=== PATIENT | male | born 1990 | race African-American/Black ===

== ENCOUNTER 2018-06-15 21:33 | Emergency (ER) | payer OTHER ==
[2018-06-15] MEDS: NS 1,000 ML IV (22:45)
[2018-06-15] MEDS: KETOROLAC 30 MG/ML VIAL (J1885) IV (22:46)
== END 2018-06-16 00:31 | disposition home or self-care (01) ==
LOC: M ED 06-16 00:31
DX: R51 Headache (principal); Z79.899 Other long term (current) drug therapy
CPT/HCPCS: J1885

== ENCOUNTER 2018-08-11 22:48 | Emergency (ER) | payer OTHER | END 2018-08-11 23:40 | disposition home or self-care (01) | LOC: M ED 22:48 | DX: R13.10 Dysphagia, unspecified (principal); J02.9 Acute pharyngitis, unspecified; Z79.899 Other long term (current) drug therapy | CPT/HCPCS: 99282 ==

== ENCOUNTER 2018-08-13 23:15 | Emergency (ER) | payer OTHER ==
[2018-08-14 01:05] LABS: BASO % 0.4 % (0.0-1.0); EOS % 0.4 % (0.0-3.0); HEMATOCRIT 44.3 % (42.0-52.0); IMMATURE GRANULOCYTE % 0.2 % (0-3.0); LYMPH # 1.4 10^3/uL (1.5-6.5); MEAN CORPUSCULAR HEMOGLOBIN 31.4 pg (27.0-33.0); MEAN CORPUSCULAR HGB CONC 33.9 g/dl (32.0-36.5); MEAN CORPUSCULAR VOLUME 92.9 fl (80.0-96.0); MONO # 0.4 10^3/uL (0.0-0.8); MONO % 7.9 % (0.0-5.0); NEUTROPHILS # 3.6 10^3/uL (1.8-7.7); NEUTROPHILS % 65.1 % (36.0-66.0); PLATELET COUNT, AUTOMATED 235 10^3/uL (150-450); RED BLOOD COUNT 4.77 10^6/uL (4.30-6.10); RED CELL DISTRIBUTION WIDTH 12.9 % (11.5-14.5); WHITE BLOOD COUNT 5.5 10^3/uL (4.0-10.0)
[2018-08-14 01:31] LABS: ANION GAP 8 MEQ/L (8-16); BLOOD UREA NITROGEN 15 MG/DL (7-18); CALCIUM LEVEL 9.6 MG/DL (8.5-10.1); CARBON DIOXIDE LEVEL 24 MEQ/L (21-32); CHLORIDE LEVEL 107 MEQ/L (98-107); CPK CREATINE PHOSPHOKINASE 413 U/L (39-308); CREATININE FOR GFR 1.01 MG/DL (0.70-1.30); GLOMERULAR FILTRATION RATE > 60.0 (>60); GLUCOSE, FASTING 87 MG/DL (70-100); MB/CK RELATIVE INDEX 1.82 (< OR =4); POTASSIUM SERUM 4.1 MEQ/L (3.5-5.1); SODIUM LEVEL 139 MEQ/L (136-145); TROPONIN I < 0.02 NG/ML (< 0.10)
== END 2018-08-14 01:36 | disposition home or self-care (01) ==
LOC: M ED 23:15
DX: R19.8 Other specified symptoms and signs involving the digestive system and abdomen (principal); R09.81 Nasal congestion; Z79.899 Other long term (current) drug therapy
CPT/HCPCS: 82550

== ENCOUNTER 2018-09-06 15:34 | Emergency (ER) | payer OTHER | END 2018-09-06 16:26 | disposition home or self-care (01) | LOC: M ED 15:34 | DX: Z76.0 Encounter for issue of repeat prescription (principal); F39 Unspecified mood [affective] disorder; Z79.899 Other long term (current) drug therapy | CPT/HCPCS: 99282 ==

== ENCOUNTER 2019-02-28 20:07 | Emergency (ER) | payer OTHER ==
[~2019-02-28] VITALS: Ht 175.3 cm; Wt 77.3 kg
[~2019-02-28 20:07] MED LIST: OMEP10CASR PO; PSEU60TA23 PO; ZYPR5TAB2 PO; ZYRT10CA5 PO
[2019-02-28] MEDS ORDERED: FLUO20CA19 PO (21:31)
[2019-02-28] MEDS ORDERED: LIDOCAINE VISCOUS 2% SOLN 15ML UDC SS ONE (22:15)
[2019-02-28 22:20] VITALS: BP 136/68
== END 2019-02-28 22:22 | disposition home or self-care (01) ==
LOC: M ED 20:07
DX: T18.108A Unspecified foreign body in esophagus causing other injury, initial encounter (principal); X58.XXXA Exposure to other specified factors, initial encounter; Y92.89 Other specified places as the place of occurrence of the external cause; J02.9 Acute pharyngitis, unspecified; K21.9 Gastro-esophageal reflux disease without esophagitis; Z79.899 Other long term (current) drug therapy

== ENCOUNTER 2019-04-02 17:31 | Emergency (ER) | payer OTHER ==
[~2019-04-02] VITALS: Ht 175.3 cm; Wt 80.0 kg
[~2019-04-02 17:31] MED LIST changes: +FLUO20CA19 PO
[2019-04-02] MEDS ORDERED: OMEP-221 PO (19:10)
[2019-04-02] MEDS ORDERED: MAGIC MOUTHWASH SUSPENSION BTL SSP STA (19:28)
[2019-04-02] MEDS ORDERED: LIDO1SOL8 PO (20:17)
[2019-04-02 20:22] VITALS: BP 133/82
--- NOTE | 2019-04-02 20:34 | REP ---
CHEST, TWO VIEWS: There is no evidence of acute infiltrate. No pleural effusion is seen. The heart is normal in size. The mediastinal silhouette is unremarkable. The visualized osseous structures are intact. IMPRESSION: No acute pulmonary disease. Electronically Signed by John Osorio MD 04/04/2019 12:53 P
== END 2019-04-02 20:37 | disposition home or self-care (01) ==
LOC: M ED 17:31
DX: S29.012A Strain of muscle and tendon of back wall of thorax, initial encounter (principal); X58.XXXA Exposure to other specified factors, initial encounter; Y92.138 Other place on military base as the place of occurrence of the external cause; B34.9 Viral infection, unspecified; M54.9 Dorsalgia, unspecified; K21.9 Gastro-esophageal reflux disease without esophagitis

== ENCOUNTER → 2019-04-21 | Outpatient (CLI) | payer OTHER ==
[~2019-04-21] MED LIST changes: +E-Z-GAS II EFFERVESCENT PACKET (SODIUM BICARB./CITRIC ACID/SIMETHICONE) As Ordered ONE; +E-Z-HD 98% w/w 340GM SUSP BTL As Ordered ONE; +E-Z-PAQUE 96% w/w SUSP 176GM BTL As Ordered ONE; +LIDO1SOL8 PO; +OMEP-221 PO
--- NOTE | 2019-04-22 13:21 | REP ---
Esophagram The procedure was performed under the direct supervision of Dr. Crump. The images were reviewed with Dr. Crump. A single view PA chest x-ray is submitted as a oyster cultivator film. The superior mediastinal structures are midline. The heart size is within normal limits. The lungs are clear. Liquid barium and gas producing granules were given in the erect position as well as liquid barium in the prone oblique positions in order to perform a double contrast esophagram examination. The oral and pharyngeal stages of deglutition are unremarkable. Esophageal transport is prompt and efficient and there is no esophagitis, stricture, mucosal ring or hiatal hernia. Gastroesophageal reflux is not demonstrated on this examination. Impression: Essentially unremarkable double contrast esophagram examination. 0.6 minutes of fluoro time was utilized for this procedure. Reviewed by KATIE Velasquez 04/21/2019 05:35 P Electronically Signed by John Crump MD 04/22/2019 01:12 P
== END ==
LOC: M RAD 09:29
PROVIDERS: ATTEND Physician Assistant
DX: R13.10 Dysphagia, unspecified (principal)

== ENCOUNTER 2019-05-16 10:06 | Emergency (ER) | payer OTHER ==
[~2019-05-16] VITALS: Ht 175.3 cm; Wt 76.0 kg
[~2019-05-16 10:06] MED LIST changes: -E-Z-GAS II EFFERVESCENT PACKET (SODIUM BICARB./CITRIC ACID/SIMETHICONE) As Ordered ONE; -E-Z-HD 98% w/w 340GM SUSP BTL As Ordered ONE; -E-Z-PAQUE 96% w/w SUSP 176GM BTL As Ordered ONE
[2019-05-16] MEDS ORDERED: NS 1,000 ML IV ONE (10:45)
[2019-05-16] MEDS ORDERED: KETOROLAC 30 MG/ML VIAL (J1885) IV ONE (10:45)
[2019-05-16 11:01] LABS: BASO % 0.5 % (0.0-1.0); EOS # 0.1 10^3/uL (0.0-0.50); EOS % 1.3 % (0.0-3.0); HEMATOCRIT 42.9 % (42.0-52.0); HEMOGLOBIN 14.7 g/dl (13.5-17.5); LYMPH # 1.1 10^3/uL (1.5-6.5); LYMPH % 28.5 % (24.0-44.0); MEAN CORPUSCULAR HEMOGLOBIN 31.7 pg (27.0-33.0); MEAN CORPUSCULAR HGB CONC 34.3 g/dl (32.0-36.5); MEAN CORPUSCULAR VOLUME 92.5 fl (80.0-96.0); MONO # 0.4 10^3/uL (0.0-0.8); MONO % 8.8 % (0.0-5.0); NEUTROPHILS # 2.4 10^3/uL (1.8-7.7); NEUTROPHILS % 60.9 % (36.0-66.0); PLATELET COUNT, AUTOMATED 221 10^3/uL (150-450); RED BLOOD COUNT 4.64 10^6/uL (4.30-6.10)
[2019-05-16 11:19] LABS: BLOOD UREA NITROGEN 9 MG/DL (7-18); C REACTIVE PROTEIN QUANTITATIV < 0.30 MG/DL (0.00-0.30); CALCIUM LEVEL 9.3 MG/DL (8.5-10.1); CARBON DIOXIDE LEVEL 26 MEQ/L (21-32); CHLORIDE LEVEL 106 MEQ/L (98-107); CREATININE FOR GFR 1.03 MG/DL (0.70-1.30); GLOMERULAR FILTRATION RATE > 60.0 (>60); GLUCOSE, FASTING 89 MG/DL (70-100); POTASSIUM SERUM 4.3 MEQ/L (3.5-5.1); SODIUM LEVEL 140 MEQ/L (136-145)
[2019-05-16 11:36] LABS: ERYTHROCYTE SEDIMENTATION RATE 4 mm/hr (0-15)
--- NOTE | 2019-05-16 11:42 | REP ---
Mode ultrasound for right testicular pain. The testes are normal size. The right testis measures 4.1 x 2.2 x 2.7 cm. Left testis measures 4.2 x 2.2 x 2.3 cm. There are no testicular masses. There is vascular flow in both testes. The Doppler resistive index of the parenchymal arteries in the right testis is 0.59 and left testis 0.49. The right epididymal head is normal size measuring 8.5 mm and is otherwise unremarkable. The left epididymal head is normal size measuring 8.0 mm AP is multiple tiny cysts. The largest cyst measures 4 mm. Impression: There is vascular flow in both testes. There are no testicular masses. There are multiple tiny left epididymal head cysts are incidentally identified. Otherwise, negative scrotal ultrasound. Electronically Signed by John Crump MD 05/16/2019 11:33 A
--- NOTE | 2019-05-16 12:01 | REP ---
CT BRAIN WITHOUT IV CONTRAST: CT brain performed without IV contrast. Ventricles are normal in size and position with no midline shift or mass effect. Osorio-white differentiation is well maintained. There is no acute intracranial hemorrhage or extra-axial fluid collection. Bone window examination is unremarkable. IMPRESSION: Negative noncontrast CT brain. Electronically Signed by John Osorio MD 05/18/2019 10:49 P
--- NOTE | 2019-05-16 12:36 | REP ---
CT MAXILLOFACIAL BONES: CT maxillofacial bones performed in the axial plane with sagittal and coronal reconstruction images. Paranasal sinuses are clear with no air fluid levels. Mastoid air cells are well aerated with no abnormal opacification. Visualized osseous structures are intact. No gross soft tissue mass is seen. Globes appear intact. IMPRESSION: No evidence of sinusitis or mastoiditis. Electronically Signed by John Osorio MD 05/18/2019 10:50 P
[2019-05-16 12:44] LABS: CHLAMYDIA DNA AMPLIFICATION NEGATIVE (NEGATIVE); GC DNA AMPLIFICATION NEGATIVE (NEGATIVE)
[2019-05-16 13:18] VITALS: BP 129/72
== END 2019-05-16 13:19 | disposition home or self-care (01) ==
LOC: M ED 10:06
DX: R51 Headache (principal); N50.811 Right testicular pain; R10.30 Lower abdominal pain, unspecified; N50.3 Cyst of epididymis; Z79.899 Other long term (current) drug therapy
CPT/HCPCS: 70450; 70486; 76870; 80048; 81001; 85025; 85652; 86140; 87661; 93976; 96374; 99284; J1885

== ENCOUNTER 2019-06-22 19:58 | Emergency (ER) | payer OTHER ==
[~2019-06-22] VITALS: Ht 175.3 cm; Wt 77.3 kg
[2019-06-22 19:58] VITALS: BP 136/68
== END 2019-06-22 20:33 | disposition home or self-care (01) ==
LOC: M ED 19:58
DX: R13.10 Dysphagia, unspecified (principal)

== ENCOUNTER 2019-07-04 18:08 | Emergency (ER) | payer OTHER ==
[~2019-07-04] VITALS: Ht 175.3 cm; Wt 79.5 kg
--- NOTE | 2019-07-04 19:07 | ECGEPIP ---
[facility] - ED Test Date: 2019-07-04 Pat Name: SRIRAM YATES Department: Room: - Gender: Male Financial Recording Clerk: FARZANEH : 1990 Requested By: MARIANO Landry Order Number: [id number] Reading MD: Celestino Schroeder Measurements Intervals [place] Rate: 89 P: 65 CO: 141 QRS: 83 QRSD: 90 T: 62 QT: 332 QTc: 405 Interpretive Statements SINUS RHYTHM BENIGN EARLY REPOLARIZATION NO PRIORS FOR COMPARISON Electronically Signed on 07-04-2019 19:07:15 EDT by Celestino Schroeder
--- NOTE | 2019-07-04 20:05 | REP ---
HISTORY: Pain. COMPARISON: 04/02/2019 FINDINGS: The superior mediastinal structures are midline. The cardiac silhouette is unremarkable in size, shape and position. The diaphragmatic surfaces of the lungs are regular and the costophrenic angles are clear. The pulmonary randolph are clear. The imaged osseous structures are intact. IMPRESSION: There is no acute cardiopulmonary disease. No change. Electronically Signed by Dc Calderon DO 07/05/2019 09:07 A
[2019-07-04] MEDS ORDERED: ZYPR10TA PO (20:09)
[2019-07-04] MEDS ORDERED: IBUP80TA PO (20:09)
[2019-07-04 20:21] LABS: BASO % 0.4 % (0.0-1.0); EOS # 0.1 10^3/uL (0.0-0.5); EOS % 1.2 % (0.0-3.0); HEMATOCRIT 44.7 % (42.0-52.0); HEMOGLOBIN 14.9 g/dl (13.5-17.5); LYMPH # 1.3 10^3/uL (1.5-5.0); LYMPH % 16.6 % (24.0-44.0); MEAN CORPUSCULAR HEMOGLOBIN 30.8 pg (27.0-33.0); MEAN CORPUSCULAR HGB CONC 33.3 g/dl (32.0-36.5); MEAN CORPUSCULAR VOLUME 92.4 fl (80.0-96.0); MONO # 0.6 10^3/uL (0.0-0.8); MONO % 7.5 % (0.0-5.0); NEUTROPHILS # 5.6 10^3/uL (1.5-8.5); NEUTROPHILS % 73.9 % (36.0-66.0); PLATELET COUNT, AUTOMATED 271 10^3/uL (150-450); RED BLOOD COUNT 4.84 10^6/uL (4.30-6.10); WHITE BLOOD COUNT 7.6 10^3/uL (4.0-10.0)
[2019-07-04 20:31] LABS: INR 0.95; PROTHROMBIN TIME 12.4 SECONDS (11.8-14.0)
[2019-07-04 20:32] LABS: PARTIAL THROMBOPLASTIN TIME 34.5 SECONDS (25.0-38.4)
[2019-07-04 20:41] LABS: ERYTHROCYTE SEDIMENTATION RATE 6 mm/hr (0-15)
[2019-07-04 20:49] LABS: ALBUMIN 4.2 GM/DL (3.2-5.2); ALT/SGPT 69 U/L (12-78); BILIRUBIN,DIRECT < 0.1 MG/DL (0.0-0.2); BILIRUBIN,TOTAL 0.3 MG/DL (0.2-1.0); BLOOD UREA NITROGEN 11 MG/DL (7-18); CARBON DIOXIDE LEVEL 30 MEQ/L (21-32); CHLORIDE LEVEL 104 MEQ/L (98-107); CK-MB VALUE MASS 4.8 NG/ML (<3.6); CPK CREATINE PHOSPHOKINASE 653 U/L (39-308); CREATININE FOR GFR 1.17 MG/DL (0.70-1.30); GLOMERULAR FILTRATION RATE > 60.0 (>60); GLUCOSE, FASTING 91 MG/DL (70-100); LIPASE 88 U/L (73-393); MAGNESIUM LEVEL 2.1 MG/DL (1.8-2.4); MB/CK RELATIVE INDEX 0.74 (< OR =4); POTASSIUM SERUM 4.4 MEQ/L (3.5-5.1); SODIUM LEVEL 138 MEQ/L (136-145); TOTAL PROTEIN 7.8 GM/DL (6.4-8.2); TROPONIN I < 0.02 NG/ML (< 0.10)
[2019-07-04] MEDS ORDERED: NS 1,000 ML IV ONE (21:00)
[2019-07-04 22:04] VITALS: BP 131/76
== END 2019-07-04 23:00 | disposition home or self-care (01) ==
LOC: M ED 18:08
DX: E86.0 Dehydration (principal); K21.9 Gastro-esophageal reflux disease without esophagitis; F17.290 Nicotine dependence, other tobacco product, uncomplicated

== ENCOUNTER 2019-07-25 21:15 | Emergency (ER) | payer OTHER ==
[~2019-07-25] VITALS: Ht 175.3 cm; Wt 79.5 kg
[~2019-07-25 21:15] MED LIST changes: +IBUP80TA PO; +ZYPR10TA PO
[2019-07-25 21:16] VITALS: BP 135/73
[2019-07-25] MEDS ORDERED: GI COCKTAIL 50ML BTL(HYOSCYAMINE/MAALOX/LIDOCAINE VISCOUS)(1:3:1) PO ONE (22:30)
== END 2019-07-25 22:32 | disposition home or self-care (01) ==
LOC: M ED 21:15
DX: R09.89 Other specified symptoms and signs involving the circulatory and respiratory systems (principal); K21.9 Gastro-esophageal reflux disease without esophagitis; Z79.899 Other long term (current) drug therapy

== ENCOUNTER 2019-10-17 19:08 | Emergency (ER) | payer OTHER ==
[~2019-10-17] VITALS: Ht 175.3 cm; Wt 91.7 kg
[2019-10-17 19:08] VITALS: BP 138/78
[2019-10-17] MEDS ORDERED: FLUO40CA PO (19:22)
--- NOTE | 2019-10-18 07:20 | REP ---
SOFT TISSUE NECK X-RAY: 10/17/2019. Clinical history: Question swallowed fish bone, stuck in throat. Findings: Two lateral views both show a small linear hyperdense focus just posterior to an abutting the thyroid cartilage, anterior to the C5-6 level. This could be a small bone fragment. I cannot see it on the frontal view. The tracheal airway was unremarkable. Epiglottis and its folds intact. Nasopharyngeal airway and the hypopharynx also unremarkable. Impression: 1. A 3 mm linear hyperdense focus on the lateral view abutting posterior margin of the thyroid cartilage at the C5-6 disc level anteriorly. This could be a small fish bone fragment in that location. Please see my arrows on the two lateral views. Electronically Signed by Tc Real MD 10/18/2019 07:49 P
== END 2019-10-17 20:15 | disposition home or self-care (01) ==
LOC: M ED 19:08
DX: R09.89 Other specified symptoms and signs involving the circulatory and respiratory systems (principal); F41.9 Anxiety disorder, unspecified; Z79.899 Other long term (current) drug therapy

== ENCOUNTER 2019-11-12 07:55 | Day surgery (SDC) | payer OTHER ==
[~2019-11-12] VITALS: Ht 175.3 cm; Wt 94.3 kg
[~2019-11-12 07:55] MED LIST changes: -FLUO20CA19 PO; +FLUO20CA22 PO; +FLUO40CA PO; -LIDO1SOL8 PO; +LIDO2SOL17 PO; +NS 1,000 ML IV ONE
[2019-11-12] MEDS ORDERED: fentaNYL 100 MCG/2 ML INJECTION (J3010) As Ordered ONE (08:53)
[2019-11-12] MEDS ORDERED: propofoL 200 MG/20 ML VIAL As Ordered ONE (08:55)
[2019-11-12] MEDS ORDERED: LIDOCAINE 2% INJ 100 MG/5 ML SDV (FOR ANES.) As Ordered ONE (08:55)
[2019-11-12 10:20] VITALS: BP 131/70
--- NOTE | 2019-11-12 15:34 | ROOR ---
Patient Name: Andre Brown Procedure Date: 11/12/2019 9:37 AM Date of : 1990 Age: 29 Room: [facility] Gender: Male Note Status: Finalized Procedure: Upper Endoscopy + Biopsies Indications: Dysphagia, Heartburn Providers: Douglas Soto MD Referring MD: GRACIELA HENSON MD Requesting Provider: Medicines: Monitored Anesthesia Care Complications: No immediate complications. Procedure: Pre-Anesthesia Assessment: - The heart rate, respiratory rate, oxygen saturations, blood pressure, adequacy of pulmonary ventilation, and response to care were monitored throughout the procedure. The Endoscope was introduced through the mouth, and advanced to the second part of duodenum. The upper GI endoscopy was accomplished without difficulty. The patient tolerated the procedure well. Findings: The Z-line was regular and was found 39 cm from the incisors. Multiple biopsies were obtained with cold forceps for evaluation to rule out Auguste's Esophagus randomly at the gastroesophageal junction. Multiple biopsies were obtained with cold forceps for evaluation of eosinophilic esophagitis randomly in the middle third of the esophagus. Localized mildly erythematous mucosa without bleeding was found on the greater curvature of the stomach. Biopsies were taken with a cold forceps for Helicobacter pylori testing. The exam of the duodenum was otherwise normal. Impression: - Z-line regular, 39 cm from the incisors. - Erythematous mucosa in the greater curvature. Biopsied. - Multiple biopsies were obtained at the gastroesophageal junction. - Multiple biopsies were obtained in the middle third of the esophagus. - The examination was otherwise normal. Recommendation: - Patient has a contact number available for emergencies. The signs and symptoms of potential delayed complications were discussed with the patient. Return to normal activities tomorrow. Written discharge instructions were provided to the patient. - High fiber diet. - Discharge patient to home. - Continue present medications. - Await pathology results. - Telephone GI clinic for pathology results in 1 week. - Return to referring physician. - The findings and recommendations were discussed with the patient's family. Douglas Soto MD Douglas Soto MD 11/12/2019 9:55:24 AM Electronically signed by Douglas Soto MD Number of Addenda: 0 Note Initiated On: 11/12/2019 9:37 AM Estimated Blood Loss: Estimated blood loss: none.
== END 2019-11-12 10:37 | disposition home or self-care (01) ==
LOC: M OPP 07:55
PROVIDERS: ATTEND Internal Medicine Gastroenterology
DX: K31.89 Other diseases of stomach and duodenum (principal); R13.10 Dysphagia, unspecified; R12 Heartburn; K21.9 Gastro-esophageal reflux disease without esophagitis; Z79.899 Other long term (current) drug therapy; F17.299 Nicotine dependence, other tobacco product, with unspecified nicotine-induced disorders
CPT/HCPCS: 43239; 88305; J3010

== ENCOUNTER 2019-12-15 17:02 | Emergency (ER) | payer OTHER ==
[~2019-12-15] VITALS: Ht 175.3 cm; Wt 92.1 kg
[2019-12-15 17:02] VITALS: BP 138/85
[~2019-12-15 17:02] MED LIST changes: -NS 1,000 ML IV ONE
[2019-12-15] MEDS ORDERED: GI COCKTAIL 50ML BTL(HYOSCYAMINE/MAALOX/LIDOCAINE VISCOUS)(1:3:1) PO ONE (17:30)
== END 2019-12-15 17:39 | disposition home or self-care (01) ==
LOC: M ED 17:02
DX: S10.11XA Abrasion of throat, initial encounter (principal); X58.XXXA Exposure to other specified factors, initial encounter; Y92.89 Other specified places as the place of occurrence of the external cause; K21.9 Gastro-esophageal reflux disease without esophagitis; F41.9 Anxiety disorder, unspecified; Z79.899 Other long term (current) drug therapy